=== PATIENT | male | born 1985 | race Caucasian/White ===

== ENCOUNTER 2017-10-01 12:42 | Emergency (ER) | payer OTHER ==
[~2017-10-01] VITALS: Ht 177.8 cm; Wt 99.8 kg
[~2017-10-01 12:42] MED LIST: ACETAMINOPHEN325 M1 PO; ADVIL200 MG PO; CIPRO500 MG PO; FLAGYL500 MG PO; HYDROCODON-ACE1 EA10 PO; MULTIVITAMINS1 EAC7 PO; NORCO 5-325 TA1 EACH PO; PENICILLIN V P500 MG PO; SEPTRA DS TABL1 EACH PO; SERTRALINE HCL50 MG PO; ULTRAM50 MG PO
== END 2017-10-01 13:00 | disposition home or self-care (01) ==
LOC: ED 12:42
DX: R50.9 Fever, unspecified (principal); M79.1 Myalgia

== ENCOUNTER 2019-06-18 19:14 | Emergency (ER) | payer SELFPAY ==
[~2019-06-18] VITALS: Ht 177.8 cm; Wt 90.7 kg
[2019-06-18] MEDS ORDERED: NORCO 5-325 TA1 EACH PO (20:58)
[2019-06-18] MEDS ORDERED: AUGMENTIN 875-1 EACH PO (20:58)
== END 2019-06-18 21:07 | disposition home or self-care (01) ==
LOC: ED 19:14
PROC: 0HDQXZZ Extraction of Finger Nail, External Approach (ICD-10-PCS; principal; 2019-06-18)
DX: S61.102A Unspecified open wound of left thumb with damage to nail, initial encounter (principal); S60.410A Abrasion of right index finger, initial encounter; W54.0XXA Bitten by dog, initial encounter
CPT/HCPCS: 11730; 90471; 90715; 99283-25

== ENCOUNTER 2022-06-19 02:06 | Emergency (ER) | payer OTHER ==
[~2022-06-19] VITALS: Ht 177.8 cm; Wt 100.9 kg
[~2022-06-19 02:06] MED LIST changes: +AUGMENTIN 875-1 EACH PO
== END 2022-06-19 02:51 | disposition home or self-care (01) ==
LOC: ED 02:06
DX: S61.217A Laceration without foreign body of left little finger without damage to nail, initial encounter (principal); W00.0XXA Fall on same level due to ice and snow, initial encounter; Z88.0 Allergy status to penicillin
CPT/HCPCS: 12001; 99282-25; A9270

== ENCOUNTER 2024-06-21 12:00 | Emergency (ER) | payer OTHER ==
[~2024-06-21] VITALS: Ht 175.3 cm; Wt 105.0 kg
[~2024-06-21 12:00] MED LIST changes: +DICYCLOMINE HCL20 MG PO; +ONDANSETRON ODT4 MG PO
[2024-06-21 15:25] VITALS: BP 133/88
== END 2024-06-21 15:33 | disposition home or self-care (01) ==
LOC: ED 12:00
DX: S63.92XA Sprain of unspecified part of left wrist and hand, initial encounter (principal); Z87.828 Personal history of other (healed) physical injury and trauma; Z88.0 Allergy status to penicillin; Z88.1 Allergy status to other antibiotic agents; X50.0XXA Overexertion from strenuous movement or load, initial encounter
CPT/HCPCS: 73130; 99283